=== PATIENT | female | born 1955 | race Native Hawaiian/Other Pacific Islander ===

== ENCOUNTER 2019-01-24 09:24 | Emergency (ER) | payer OTHER ==
[~2019-01-24] VITALS: Ht 162.6 cm; Wt 49.4 kg
[2019-01-24 09:24] VITALS: TEMP 98.2
[2019-01-24 09:55] VITALS: BP 113/72
== END 2019-01-24 09:55 | disposition home or self-care (01) ==
LOC: ED 09:24
DX: J44.9 Chronic obstructive pulmonary disease, unspecified (principal); Z99.81 Dependence on supplemental oxygen; F17.210 Nicotine dependence, cigarettes, uncomplicated
CPT/HCPCS: 99282